=== PATIENT | female | born 1995 | race Caucasian/White ===

== ENCOUNTER 2017-01-28 17:54 | Emergency (ER) | payer OTHER ==
[2017-01-28 18:37] LABS: BILIRUBIN,URINE NEGATIVE (NEGATIVE)
[2017-01-28 18:39] LABS: HCG UR QUAL NEGATIVE; UA CHARGE (STRIP ONLY) YES; UR CULTURE IF IND NOT INDICATED
--- NOTE | 2017-01-28 20:18 | ED Physician Documentation ---
PD HPI FEMALE - Stated complaint Stated Complaint: FEMALE - Chief complaint Chief Complaint: General - History obtained from History obtained from: Patient, Family - History of Present Illness Timing - onset: Yesterday Timing - details: Gradual onset, Now resolved Associated symptoms: Other (breast discoloration) Similar symptoms before: Has not had sx before Recently seen: Not recently seen - Additional information Additional information: Patient is a 21 year old female with no significant past medical history who is presenting to the emergency department for breast discoloration. patient states that yesterday she noticed spots on her nipples that have since resolved. Patient reports that she had similar finding about a month ago that also went away on their own. Patient denies any fever, chills or any type of breast feeding. today patient's symptoms have resolved. Review of Systems Constitutional: denies: Fever, Chills Eyes: denies: Decreased vision, Photophobia Ears: denies: Ear pain, Drainage/discharge Nose: denies: Rhinorrhea / runny nose, Congestion Throat: denies: Sore throat Cardiac: denies: Chest pain / pressure, Palpitations Respiratory: denies: Cough, Wheezing GI: denies: Abdominal Pain, Nausea Skin: reports: Rash. denies: Abrasion (s), Laceration (s) Musculoskeletal: denies: Neck pain, Back pain Neurologic: denies: Generalized weakness, Focal weakness, Numbness Immunocompromised: denies: Immunocompromised PD PAST MEDICAL HISTORY - Past Medical History Past Medical History: No - Past Surgical History Past Surgical History: No - Present Medications Home Medications: Ambulatory Orders Medication Instructions Recorded Confirmed No Known Home Medications [No 01/28/17 01/28/17 Known Home Medications] - Allergies Allergies/Adverse Reactions: Allergies Allergy/AdvReac Type Severity Reaction Status Date / Time No Known Drug Allergies Allergy Verified 01/28/17 18:20 - Social History Does the pt smoke?: Yes Smoking Status: Light tobacco smoker PD ED PE NORMAL - Vitals Vital signs reviewed: Yes - General General: Alert and oriented X 3, No acute distress - HEENT HEENT: Atraumatic, PERRL - Cardiac Cardiac: RRR, No murmur - Respiratory Respiratory: No respiratory distress, Clear bilaterally - Abdomen Abdomen: Soft, Non tender, Non distended - Derm Derm: Normal color, Warm and dry, No rash - Extremities Extremities: No deformity - Neuro Neuro: Alert and oriented X 3, No motor deficit, No sensory deficit - Psych Psych: Normal mood, Normal affect Results - Vitals Vitals: Vital Signs - 24 hr 01/28/17 01/28/17 18:17 20:33 Temperature 37.0 C Heart Rate 76 61 Respiratory 18 14 Rate Blood Pressure 122/77 119/60 O2 Saturation 100 99 Oxygen O2 Source Room air - Labs Labs: Laboratory Tests 01/28/17 18:20 Urine Color YELLOW Urine Clarity CLEAR Urine pH 6.0 Ur Specific [place] >=1.030 H Urine Protein TRACE Urine Glucose (UA) NEGATIVE Urine Ketones NEGATIVE Urine Occult Blood NEGATIVE Urine Nitrite NEGATIVE Urine Bilirubin NEGATIVE Urine Urobilinogen 0.2 (NORMAL) Ur Leukocyte Esterase NEGATIVE Ur Microscopic Review NOT INDICATED Urine Culture Comments NOT INDICATED Urine HCG, Qual NEGATIVE PD MEDICAL DECISION MAKING - ED course Complexity details: reviewed old records, re-evaluated patient, considered differential, d/w patient, d/w family ED course: Patient was seen and examined at bedside. patient was well appearing and in no acute distress. patient had no lesions today. Patient was given ample time to ask and answer questions. Patient required no further work up and was stable for discharge with outpatient follow up. Departure - Departure Disposition: 01 Home, Self Care Clinical Impression: Skin rash Condition: Good Instructions: Hormones Control Menstrual Cycle Follow-Up: primary,care provider [Other] - As Needed Comments: Your symptoms seemed to have resolved. I would think that your symptoms are likely hormonal in nature. You should monitor the signs and dates of your symptoms. I would not recommend any therapy at this time. You should follow up with your pmd as needed. You may return to the emergency department at any time for new, worsening or uncontrollable symptoms. Discharge Date/Time: 01/28/17 20:33
[2017-01-28 20:36] VITALS: BP 119/60
== END 2017-01-28 20:33 | disposition home or self-care (01) ==
LOC: ED 17:54
DX: R21 Rash and other nonspecific skin eruption (principal); F17.200 Nicotine dependence, unspecified, uncomplicated
CPT/HCPCS: 81001; 81003; 81025; 87086; 99282; 99283

== ENCOUNTER 2018-09-02 14:33 | Emergency (ER) | payer OTHER ==
[2018-09-02 14:46] VITALS: BP 129/74
--- NOTE | 2018-09-02 16:55 | ED Physician Documentation ---
History of Present Illness - Stated complaint Stated Complaint: HEADACHE,SOA,CHEST PX - Chief complaint Chief Complaint: Resp - History obtained from History obtained from: Patient - History of Present Illness Timing: How many days ago (several) Pain level max: 0 Pain level now: 0 - Additonal information Additional information: 22-year-old female states that she was exposed to carbon monoxide at work yesterday. They have since fixed the leak. Told to come here for evaluation. She occasionally has headaches. None now. Feels normal. Review of Systems Cardiac: denies: Chest pain / pressure Respiratory: denies: Cough GI: denies: Vomiting : denies: Now EGA Skin: denies: Rash PD PAST MEDICAL HISTORY - Past Medical History Past Medical History: No - Past Surgical History Past Surgical History: No - Present Medications Home Medications: Ambulatory Orders Medication Instructions Recorded Confirmed No Known Home Medications 01/28/17 01/28/17 - Allergies Allergies/Adverse Reactions: Allergies Allergy/AdvReac Type Severity Reaction Status Date / Time No Known Drug Allergies Allergy Verified 09/02/18 14:39 - Social History Does the pt smoke?: Yes Smoking Status: Light tobacco smoker PD ED PE NORMAL - Vitals Vital signs reviewed: Yes - General General: Alert and oriented X 3, No acute distress, Well developed/nourished - HEENT HEENT: PERRL, Ears normal, Moist mucous membranes, Pharynx benign - Neck Neck: Supple, no meningeal sign - Cardiac Cardiac: RRR, Strong equal pulses - Respiratory Respiratory: No respiratory distress, Clear bilaterally - Abdomen Abdomen: Soft, Non tender, Non distended - Derm Derm: Warm and dry, No rash - Extremities Extremities: No edema - Neuro Neuro: Alert and oriented X 3 - Psych Psych: Normal mood, Normal affect Results - Vitals Vitals: Oxygen O2 Source Room air - Labs Labs: Laboratory Tests 09/02/18 15:20 VBG Total Hgb 14.4 VBG Oxyhemoglobin 34 L VBG Carboxyhemoglobin 0.5 VBG Methemoglobin 1.4 PD MEDICAL DECISION MAKING - ED course Complexity details: reviewed results, considered differential, d/w patient ED course: 22-year-old female presents to the emergency department after a carbon monoxide exposure yesterday. Asymptomatic now. Carbon monoxide level is normal. Labor and industry paperwork filled out. Patient counseled regarding signs and symptoms for which I believe and urgent re-evaluation would be necessary. Patient with good understanding of and agreement to plan and is comfortable going home at this time This document was made in part using voice recognition software. While efforts are made to proofread this document, sound alike and grammatical errors may occur. Departure - Departure Disposition: 01 Home, Self Care Clinical Impression: Carbon monoxide exposure Condition: Good Instructions: ED CO Poisoning Follow-Up: your,doctor as needed. [Other] Comments: your carbon monoxide levels are normal today. Return if you worsen. Forms: Activity restrictions Discharge Date/Time: 09/02/18 17:20
== END 2018-09-02 17:20 | disposition home or self-care (01) ==
LOC: ED 14:33
DX: Z77.9 Other contact with and (suspected) exposures hazardous to health (principal)
CPT/HCPCS: 1040M; 36415; 82375; 99282; 99283